=== PATIENT | male | born 1950 | race Caucasian/White ===

== ENCOUNTER 2021-05-21 16:33 | Emergency (ER) | payer OTHER ==
--- OUTSIDE RECORDS SUMMARY | 2021-05-21 16:37 | XMS REPORT | Continuity of Care Document ---
:1950 Author Organization Formerly [facility] t Address [address] [place] [address] Care Team Providers Name Role Phone Aquino_B Attending Clinician Unavailable Jaguar Attending Clinician Unavailable Aquino_B Admitting Clinician Unavailable Jaguar Admitting Clinician Unavailable Payers Payer Name Policy Type Policy Number Effective Date Expiration Date S chuck MEDICARE [place]: [id number] 2015 Simple Emotion 00:00:00 [employer] (MEDICARE [id number] SUPPLEMENT) [facility] [id number] 2019 2020 (MEDICARE 00:00:00 00:00:00 SUPPLEMENT) Problems Condition Condition Condition Status Onset Resolution Last Treating Co mments Source Name Details Category Date Date Treatment Clinician Date Cyst of Cyst of Problem Active [facility] kidney Kidney 1-13 Family 00:00: Practic 00 e Hypothyroi Hypothyroi Problem Active [facility] dism dism 5-01 Family 00:00: Practic 00 e Body mass Body Mass Problem Active Luke meeke index 40+ Index 40+ 5-01 Fami ly - severely - Severely 00:00: Pr actic obese Obese 00 e Morbid Morbid Problem Active [facility] Obesity 4-19 Family 00:00: Practic 00 e Essential Essential Problem Active 2015-06 Luke meeke hypertensi Hypertensi 2-01 Fa didi on on 00:00: Practic 00 e Allergies, Adverse Reactions, Alerts Allergy Allergy Status Severity Reaction(s) Onset Inactive Treating Comm ents Source Name Type Date Date Clinician hydrocod DA Active [facility] 3-22 [place] [facility] acetamin DA Active [facility] 09-15 [facility]: [facility] hydrocod DA Active [facility] 09-15 [place] 00:[facility]: [facility] acetamin DA Active [facility] 09-15 [place] 00:[facility]: [facility] Social History Smoking Status Start Date Stop Date Source Never Smoker [facility] Medications Ordered Filled Start Stop Current Ordering Indication Dosage Frequency Signature Comments Components Source Medication Medication Date Date Medication? Clinician (SIG) Name Name ceftriaxone ceftriaxone No ceftriaxon [facility] 1 gram 1 gram 03-23 e 1 gram Family solution solution 14:25: solution P ractic for for 53 for e injectionTa injectionTa injectionT ke 1 g by ke 1 g by adriana 1 g by injection injection injection route for 1 route for 1 route for day. day. 1 day. amlodipine amlodipine No amlodipine [facility] 10 mg 10 mg 10 mg Family tablet TAKE tablet TAKE tablet Practic 1 TABLET BY 1 TABLET BY TAKE 1 e MOUTH EVERY MOUTH EVERY TABLET BY DAY-- DAY-- MOUTH EVERY DAY-- atenolol atenolol No atenolol Luke sameer 100 100 100 Family mg-chlortha mg-chlortha mg-chlorth Practic lidone 25 lidone 25 alidone 25 e mg tablet mg tablet mg tablet TAKE 1 TAKE 1 TAKE 1 TABLET BY TABLET BY TABLET BY MOUTH EVERY MOUTH EVERY MOUTH DAY- DAY- EVERY DAY- ceftriaxone ceftriaxone No 1g ceftriaxon [facility] 1 gram 1 gram e 1 gram Family solution solution solution Pra ctic for for for e injection injection injection Take 1 g by Take 1 g by Take 1 g injection injection by route for 1 route for 1 injection day. given day. given route for in the in the 1 day. clinic clinic given in the clinic ibuprofen ibuprofen No 1 TID ibuprofen [facility] 600 mg 600 mg 600 mg Family tablet Take tablet Take tablet Practic 1 tablet 3 1 tablet 3 Take 1 e times a day times a day tablet 3 by oral by oral times a route as route as day by needed for needed for oral route 10 days. 10 days. as needed for 10 days. sulfamethox sulfamethox No sulfametho [facility] azole 800 azole 800 xazole 800 Family mg-trimetho mg-trimetho mg-trimeth Practic prim 160 mg prim 160 mg oprim 160 e tablet TAKE tablet TAKE mg tablet 1 TABLET BY 1 TABLET BY TAKE 1 MOUTH EVERY MOUTH EVERY TABLET BY 12 HOURS 12 HOURS MOUTH FOR 7 DAYS FOR 7 DAYS EVERY 12 HOURS FOR 7 DAYS tramadol 50 tramadol 50 No 1 Q6H tramadol [facility] mg tablet mg tablet 50 mg Fami ly Take 1 Take 1 tablet Practic tablet tablet Take 1 e every 6 every 6 tablet hours by hours by every 6 oral route oral route hours by as needed as needed oral route for 7 days. for 7 days. as needed for 7 days. Vital Signs Vital Name Observation Time Observation Value Comments Source BP Diastolic 2021-03-23 00:00:00 74 mm[Hg] [facility] Height 2021-03-23 00:00:00 69 [in_i] [facility] Practice BMI (Body Mass 2021-03-23 00:00:00 45.8 kg/m2 [facility] e Family Index) Practice BP Systolic 2021-03-23 00:00:00 142 mm[Hg] [facility] Body Weight 2021-03-23 00:00:00 310 [lb_av] [facility] BP Diastolic 2021-03-18 00:00:00 77 mm[Hg] [facility] Height 2021-03-18 00:00:00 69 [in_i] [facility] BMI (Body Mass 2021-03-18 00:00:00 46.1 kg/m2 [facility] e Family Index) Practice BP Systolic 2021-03-18 00:00:00 152 mm[Hg] [facility] Body Weight 2021-03-18 00:00:00 312 [lb_av] [facility] BP Diastolic 2020-07-09 00:00:00 74 mm[Hg] [facility] Height 2020-07-09 00:00:00 69 [in_i] [facility] BMI (Body Mass 2020-07-09 00:00:00 45.5 kg/m2 [facility] e Family Index) Practice BP Systolic 2020-07-09 00:00:00 156 mm[Hg] [facility] Body Weight 2020-07-09 00:00:00 308.2 [lb_av] [facility] BP Diastolic 2020-05-01 00:00:00 83 mm[Hg] [facility] Height 2020-05-01 00:00:00 69 [in_i] [facility] BMI (Body Mass 2020-05-01 00:00:00 44.4 kg/m2 [facility] Family Index) Practice BP Systolic 2020-05-01 00:00:00 140 mm[Hg] [facility] Body Weight 2020-05-01 00:00:00 300.8 [lb_av] [facility] BP Diastolic 2019-06-18 00:00:00 96 mm[Hg] [facility] Height 2019-06-18 00:00:00 69 [in_i] [facility] BMI (Body Mass 2019-06-18 00:00:00 44.8 kg/m2 [place] Index) Practice BP Systolic 2019-06-18 00:00:00 189 mm[Hg] [facility] Body Weight 2019-06-18 00:00:00 303.6 [lb_av] [facility] Procedures Procedure Date / Time Performed Performing Clinician [facility] e X-RAY OF WRIST 3+ VIEW 2021-03-23 00:00:00 [facility] Orthopedic Surgery 2010-06-27 00:00:00 [facility] Practice Total Replacement of [facility] Kamran navarro Right Knee Joint Practice Plan of Care Planned Activity Planned Date Details Comments Source Diagnostic Test 2021-03-23 uric acid, serum [facility] Pending 00:00:00 or plasma [code = Practice uric acid, serum or plasma] Future Appointment 2021-07-13 Carolina Leone [facility] 09:15:00 [address]; , [place] [address] Encounters Start End Encounter Admission Attending Care Care Encounter Source Date/Time Date/Time Type Type Clinicians Facility Department ID 2021-05-17 Outpatient VFP VFP [facility] 11:18:32 [id number] Family Practic e 2021-05-17 Outpatient VFP VFP [facility] 01:59:17 [id number] Family Practic e 2021-05-16 Outpatient VFP VFP [facility] 23:41:35 [id number] Family Practic e 2021-05-16 Outpatient VFP VFP [facility] 22:58:16 [id number] Family Practic e 2021-05-16 Outpatient VFP VFP [facility] 22:41:10 [id number] Family Practic e 2021-05-16 Outpatient VFP [facility]FP [id number] [facility] 22:11:51 [id number] Family Practic e 2021-05-16 Outpatient VFP VFP [id number] [facility] 20:56:19 [id number] Family Practic e 2021-05-16 Outpatient VFP VFP [id number] [facility] 18:27:50 [id number] Family Practic e 2021-05-13 Outpatient VFP VFP [id number] [facility] 14:03:46 [id number] Family Practic e 2021-05-13 Outpatient VFP VFP [id number] [facility] 13:57:10 [id number] Family Practic e 2021-05-13 Outpatient VFP VFP [id number] [facility] 13:56:38 [id number] Family Practic e 2021-05-13 Outpatient VFP VFP [id number] [facility] 13:25:12 [id number] Family Practic e 2021-05-13 Outpatient VFP VFP [id number] [facility] 13:12:08 [id number] Family Practic e 2021-05-13 Outpatient VFP VFP [id number] [facility] 12:09:06 [id number] Family Practic e 2021-05-13 Outpatient VFP VFP [id number] [facility] 10:55:00 [id number] Family Practic e 2021-05-13 Outpatient VFP VFP [id number] [facility] 10:54:37 [id number] Family Practic e 2021-05-13 Outpatient VFP VFP [id number] [facility] 10:40:38 [id number] Family Practic e 2021-05-13 Outpatient VFP VFP [id number] [facility] 10:27:29 [id number] Family Practic e 2021-05-13 Outpatient VFP VFP [id number] [facility] 08:49:02 [id number] Family Practic e 2021-05-11 Outpatient Aquino_B VFP VFP [id number] [facility] 04:14:28 [id number] Family Practic e 2021-05-10 Outpatient Aquino_B VFP VFP [id number] [facility] 20:44:33 [id number] Family Practic e 2021-05-10 Outpatient Aquino_B VFP VFP [id number] [facility] 20:33:51 [id number] Family Practic e 2021-05-08 Outpatient Aquino_B VFP VFP [id number] [facility] 21:25:09 [id number] Family Practic e 2021-05-08 Outpatient Aquino_B VFP VFP [id number] [facility] 19:29:28 [id number] Family Practic e 2021-05-08 Outpatient VFP VFP [id number] [facility] 19:12:38 [id number] Family Practic e 2021-05-08 Outpatient Aquino_B VFP VFP [id number] [facility] 16:46:08 [id number] Family Practic e 2021-05-08 Outpatient Aquino_B VFP VFP [id number] [facility] 16:30:35 [id number] Family Practic e 2021-05-08 Outpatient Aquino_B VFP VFP [id number] [facility] 16:16:20 [id number] Family Practic e 2021-05-08 Outpatient VFP VFP [id number] [facility] 15:56:31 [id number] Family Practic e 2021-05-08 Outpatient VFP VFP [id number] [facility] 15:55:22 [id number] Family Practic e 2021-05-08 Outpatient Aquino_B VFP VFP [id number] [facility] 15:12:25 [id number] Family Practic e 2020-12-03 Inpatient EZ Beachews, HCATO SURG [id number] [facility] 12:00:00 [place] [id number] [place] [facility] 2021-03-23 2021-03-23 Carolina L VFP [place] - [id number] [facility] 00:00:00 00:00:00 [facility] 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, [place] [address] , Ph. 2021-03-18 2021-03-18 Carolina L VFP [place] - [id number] [facility] 00:00:00 00:00: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, [place] [address] , Ph. 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, [place] [address] , Ph. 2020-05-01 2020-05-01 Bravo [facility] [place] - [id number] [facility] 00:00:00 00:00:00 Aidan Dykes, Medical - Pract jenny MD: [address], [place] [address] , Ph. 2019-06-18 2019-06-18 Singh [facility] [place] - [id number] [facility] 00:00:00 00:00:00 Dusty [facility] melanie White Medical - Prac tic MD: [address], [place] [address] , Ph. Results Test Description Test Time Test Comments Results Result Comments Source CBC W Auto Differential panel - Blood 2021-03-18 17:31:00 Test Item Value Reference Range Interpretation Comme nts WBC (test code = WBC) 9.06 x10*3/?L 4.00-11.00 RBC (test code = RBC) 5.19 10*12/L 4.63-6.08 hemoglobin (test code = hemoglobin) 14.40 g/dL 13.70-17.50 hematocrit (test code = hematocrit) 43.7 % 40.1-51.0 MCV (test code = MCV) 84.2 fL 80.0-100.0 MCH (test code = MCH) 27.7 pg 25.7-32.2 MCHC (test code = MCHC) 33.0 g/dL 32.3-36.5 RDW-SD (test code = RDW-SD) 41.5 fL 35.1-43.9 platelet count (test code = platelet count) 241.0 k/uL 150.0-400. 0 MPV (test code = MPV) 12.0 fL 7.5-11.5 H neut% (test code = neut%) 64.0 % 34.0-67.9 lymph% (test code = lymph%) 25.5 % 21.8-53.1 mon% (test code = mon%) 6.6 % 5.3-12.2 eos% (test code = eos%) 2.8 % 0.8-7.0 baso% (test code = baso%) 0.7 % 0.2-1.2 neut# (test code = neut#) 5.8 x10*3/?L 1.8-5.4 H lymph# (test code = lymph#) 2.3 x10*3/?L 1.3-3.6 mon# (test code = mon#) 0.6 x10*3/?L 0.3-0.8 eos# (test code = eos#) 0.25 x10*3/?L 0.04-0.54 baso# (test code = baso#) 0.06 x10*3/?L 0.01-0.08 [facility] Auto Differential panel - [id number] 17:31:00 Test Item Value Reference Range Interpretation Comments WBC (test code = WBC) 9.06 x10*3/?L 4.00-11.00 RBC (test code = RBC) 5.19 10*12/L 4.63-6.08 hemoglobin (test code = 14.40 g/dL 13.70-17.50 hemoglobin) hematocrit (test code = 43.7 % 40.1-51.0 hematocrit) MCV (test code = MCV) 84.2 fL 80.0-100.0 MCH (test code = MCH) 27.7 pg 25.7-32.2 MCHC (test code = MCHC) 33.0 g/dL 32.3-36.5 RDW-SD (test code = RDW-SD) 41.5 fL 35.1-43.9 platelet count (test code = 241.0 k/uL 150.0-400.0 platelet count) MPV (test code = MPV) 12.0 fL 7.5-11.5 H neut% (test code = neut%) 64.0 % 34.0-67.9 lymph% (test code = lymph%) 25.5 % 21.8-53.1 mon% (test code = mon%) 6.6 % 5.3-12.2 eos% (test code = eos%) 2.8 % 0.8-7.0 baso% (test code = baso%) 0.7 % 0.2-1.2 neut# (test code = neut#) 5.8 x10*3/?L 1.8-5.4 H lymph# (test code = lymph#) 2.3 x10*3/?L 1.3-3.6 mon# (test code = mon#) 0.6 x10*3/?L 0.3-0.8 eos# (test code = eos#) 0.25 x10*3/?L 0.04-0.54 baso# (test code = baso#) 0.06 x10*3/?L 0.01-0.08 [facility] PracticeComprehensive metabolic 2000 panel - Serum or Plasma 2021-03-18 17:23:00 Test Item Value Reference Range Interpretation Comments ALT (test code = ALT) 22 U/L 0-55 AST (test code = AST) 21 U/L 5-34 BUN (test code = BUN) 13.6 mg/dL 8.4-25.0 alk phos (test code = alk phos) 99 unit/L 40-150 glucose (test code = glucose) 134 mg/dL 70-99 H albumin (test code = albumin) 4.4 g/dL 3.4-5.1 creatinine (test code = 0.89 mg/dL 0.72-1.25 creatinine) eGFR non- (test >60 code = eGFR non-) total bilirubin (test code = 0.8 mg/dL 0.2-1.2 total bilirubin) eGFR - (test >60 code = eGFR - ) sodium (test code = sodium) 139 mEq/L 135-145 potassium (test code = potassium) 3.9 mEq/L 3.5-5.3 chloride (test code = chloride) 101 mmol/L 98-110 total protein (test code = total 7.9 g/dL 6.1-8.2 protein) calcium (test code = calcium) 10.3 mg/dL 8.8-10.2 H CO2 (test code = CO2) 28.2 mmol/L 20.0-32.0 anion gap (test code = anion gap) 10 calc [facility] [id number] D3+25-Hydroxyvitamin D2 [Mass/volume] in Serum or [id number] 17:23:00 Test Item Value Reference Range Interpretation Comments vitamin D 25OH (test code = 71.5 NG/mL 30.0-96.0 vitamin D 25OH) [facility] - [facility] or Plasma 2021-03-18 17:23:00 Test Item Value Reference Range Interpretation Comments ALT (test code = ALT) 22 U/L 0-55 AST (test code = AST) 21 U/L 5-34 BUN (test code = BUN) 13.6 mg/dL 8.4-25.0 alk phos (test code = alk phos) 99 unit/L 40-150 glucose (test code = glucose) 134 mg/dL 70-99 H albumin (test code = albumin) 4.4 g/dL 3.4-5.1 creatinine (test code = 0.89 mg/dL 0.72-1.25 creatinine) eGFR non- (test >60 code = eGFR non-) total bilirubin (test code = 0.8 mg/dL 0.2-1.2 total bilirubin) eGFR - (test >60 code = eGFR - ) sodium (test code = sodium) 139 mEq/L 135-145 potassium (test code = potassium) 3.9 mEq/L 3.5-5.3 chloride (test code = chloride) 101 mmol/L 98-110 total protein (test code = total 7.9 g/dL 6.1-8.2 protein) calcium (test code = calcium) 10.3 mg/dL 8.8-10.2 H CO2 (test code = CO2) 28.2 mmol/L 20.0-32.0 anion gap (test code = anion gap) 10 [facility]25-Hydroxyvitamin D3+25-Hydroxyvitamin D2 [Mass/volume] in Serum or [id number] 17:23:00 Test Item Value Reference Range Interpretation Comments vitamin D 25OH (test code = 71.5 NG/mL 30.0-96.0 vitamin D 25OH) [facility]
[2021-05-21] MEDS ORDERED: CASIRIVIMAB/IMDEVIMAB 10 ML VIAL ONE (18:12)
[2021-05-21] MEDS ORDERED: ACETAMINOPHEN 500 MG TAB ONE (18:12)
[2021-05-21] MEDS ORDERED: NA CHLORIDE 0.9% 250 ML ONE (18:14)
[2021-05-21] MEDS ORDERED: NA CHLORIDE 0.9% 50 ML ONE (19:24)
--- NOTE | 2021-05-21 20:09 | ER ---
Nurse's Notes [facility] Name: Camilo Hinkle Age: 70 yrs Sex: Male : 1950 Arrival Date: 05/21/2021 Time: 16:36 Bed 18 Private MD: Diagnosis: Coronavirus infection, unspecified Presentation: 05/21 16:51 Chief complaint: Patient states: cough x 3 days and states sore throat. States took vg1 home covid test and results were positive. Pt wants to take monoclonal antibodies. Coronavirus screen: Vaccine status: Patient reports being unvaccinated. Client denies travel out of the [place] in the last 14 days. Ebola Screen: Patient negative for fever greater than or equal to 101.5 degrees Fahrenheit, and additional compatible Ebola Virus Disease symptoms. Initial Sepsis Screen: Does the patient meet any 2 criteria? RR > 20 per min. Does the patient have a suspected source of infection? No. Patient's initial sepsis screen is negative. Risk Assessment: Do you want to hurt yourself or someone else? Patient reports no desire to harm self or others. Onset of symptoms was May 18, 2021. 16:51 Method Of Arrival: Ambulatory vg1 16:51 Acuity: LANETTE 3 vg1 Triage Assessment: 16:53 General: Appears in no apparent distress. uncomfortable, Behavior is calm, cooperative. vg1 Pain: Denies pain. Respiratory: Airway is patent Respiratory effort is even, unlabored, Respiratory pattern is tachypnea. Historical: - Allergies: 16:53 hydrocdone; vg1 - Home Meds: 16:53 Metoprolol Tartrate Oral [Active]; amlodipine oral [Active]; vg1 - PMHx: 16:53 Hypertensive disorder; vg1 - PSHx: 16:53 Replacement of total knee joint; vg1 - Immunization history:: Client reports having NOT received the Covid vaccine. - Social history:: Smoking status: Patient denies any tobacco usage or history of. Screenin:30 Abuse screen: Denies threats or abuse. Denies injuries from another. sl2 17:30 Nutritional screening: No deficits noted. Tuberculosis screening: No symptoms or risk sl2 factors identified. Fall Risk None identified. Assessment: 17:20 General: Appears in no apparent distress. obese, well groomed, well developed, Behavior sl2 is calm, cooperative, appropriate for age, Reports Frequent cough, covid positive. 17:20 Pain: Denies pain. Neuro: No deficits noted. Level of Consciousness is awake, alert, sl2 obeys commands, Oriented to person, place, time, situation, Appropriate for age Cloth Shearing Supervisor are equal bilaterally Moves all extremities. Full function Gait is steady, Speech is normal, Facial symmetry appears normal. Cardiovascular: No deficits noted. Capillary refill < 3 seconds Rhythm is regular. Respiratory: Reports cough that is non-productive, persistent Airway is patent Trachea midline Respiratory effort is even, unlabored, Respiratory pattern is regular, symmetrical, Breath sounds are clear bilaterally. Breath sounds are diminished the patient has mild shortness of breath. GI: No deficits noted. No signs and/or symptoms were reported involving the gastrointestinal system. : No deficits noted. No signs and/or symptoms were reported regarding the genitourinary system. EENT: No deficits noted. No signs and/or symptoms were reported regarding the EENT system. Derm: No deficits noted. No signs and/or symptoms reported regarding the dermatologic system. Musculoskeletal: No deficits noted. No signs and/or symptoms reported regarding the musculoskeletal system. 19:55 General: Appears in no apparent distress. comfortable, Behavior is calm, cooperative. cc4 Pain: Denies pain. Neuro: No deficits noted. Level of Consciousness is awake, alert, obeys commands, Oriented to person, place, time, situation. Cardiovascular: No deficits noted. Capillary refill < 3 seconds. Respiratory: Reports cough that is non-productive, Airway is patent Respiratory effort is even, unlabored, Respiratory pattern is regular, symmetrical, Breath sounds are clear bilaterally. Breath sounds are diminished bilaterally. in left posterior lower lobe, right posterior middle lobe and right posterior lower lobe. GI: No signs and/or symptoms were reported involving the gastrointestinal system. : No signs and/or symptoms were reported regarding the genitourinary system. EENT: Reports nasal congestion since x 1 week. Derm: No deficits noted. Skin is intact. Musculoskeletal: No deficits noted. Range of motion: intact in all extremities, Regen-cov infusion complete, nohemy. well; instructed on need to monitor x 1 additional hour with v/u; VSS; voices no complaints. 20:55 Reassessment: Patient appears in no apparent distress at this time. No changes from cc4 previously documented assessment. Denies any complaints; no distress noted; VSS. Vital Signs: 16:51 BP 168 / 71; Pulse 70; Resp 22; Temp 100.6(O); Pulse Ox 97% ; Weight 129.73 kg; Height vg1 6 ft. 0 in. (182.88 cm); Pain 0/10; 17:30 BP 141 / 53; Pulse 64; Resp 18; Pulse Ox 96% on R/A; sl2 18:15 BP 148 / 52; Pulse 60; Resp 18; Temp 99.8; Pulse Ox 96% ; sl2 18:45 BP 153 / 62; Pulse 59; Resp 20; Temp 99.1(O); Pulse Ox 95% on R/A; sl2 19:00 BP 142 / 52; Pulse 60; Resp 20; Pulse Ox 96% on R/A; sl2 19:15 BP 135 / 53; Pulse 60; Resp 18; Temp 99.0(O); Pulse Ox 96% on R/A; sl2 19:55 BP 136 / 56; Pulse 65; Resp 18 S; Temp 98.9(O); Pulse Ox 96% on R/A; cc4 20:55 BP 144 / 74; Pulse 61; Resp 18 S; Temp 98.9(O); Pulse Ox 96% on R/A; cc4 16:51 Body Mass Index 38.79 (129.73 kg, 182.88 cm) vg1 ED Course: 16:36 Patient arrived in ED. ds1 16:44 Rae Foote FNP-C is [facility]. kb 16:44 Ngoc Sherwood MD is Attending Physician. kb 16:53 Triage completed. vg1 16:53 Arm band placed on. vg1 17:30 Patient has correct armband on for positive identification. Bed in low position. Call sl2 light in reach. Side rails up X2. 17:30 No provider procedures requiring assistance completed. sl2 17:40 Felicia Easton, RAINA is Primary Nurse. sl2 18:58 Inserted saline lock: 20 gauge in right upper arm, using aseptic technique. sl2 20:55 IV discontinued, intact, bleeding controlled, No redness/swelling at site. Pressure cc4 dressing applied. Administered Medications: 18:14 Drug: Tylenol 1000 mg Route: PO; sl2 05/22 05:10 Follow up: Response: No adverse reaction; Temperature is decreased cc4 05/21 18:45 Drug: REGEN-COV Dose Pack 120 mg/mL-120 mg/mL (EUA) 1 application Route: IV; Rate: sl2 calculated rate; Site: right upper arm; 20:55 Follow up: Response: No adverse reaction; IV Status: Completed infusion; IV Intake: cc4 250ml Intake: 20:55 IV: 250ml; Total: 250ml. cc4 Outcome: 20:09 Discharge ordered by MD. bassett 20:55 Discharged to home ambulatory. cc4 20:55 Condition: improved 20:55 Discharge instructions given to patient, Instructed on discharge instructions, follow up and referral plans. medication usage, Demonstrated understanding of instructions, follow-up care, medications. 21:02 Patient left the ED. cc4 Signatures: Rae Foote, SOUND RECORDIST-C SOUND RECORDIST-CkMellissa Tyson ds1 Leonora Doyle RN RN vg1 Flor Ramirez RN RN cc4 Felicia Easton RN RN sl2
--- NOTE | 2021-05-21 20:09 | EDPHYS ---
Physician Documentation [facility] Name: Camilo Hinkle Age: 70 yrs Sex: Male : 1950 Arrival Date: 05/21/2021 Time: 16:36 Bed 18 Private MD: ED Physician Ngoc Sherwood HPI: 05/21 16:50 This 70 yrs old Male presents to ER via Unassigned with complaints of Covid + Wants kb Infusion. 16:50 The patient or guardian reports cough. Onset: The symptoms/episode began/occurred 3 kb day(s) ago. Severity of symptoms: At their worst the symptoms were mild, in the emergency department the symptoms are unchanged. Modifying factors: The symptoms are alleviated by nothing, the symptoms are aggravated by nothing. Associated signs and symptoms: Pertinent positives: fever, sore throat, Pertinent negatives: chest pain, diarrhea, ear ache, nausea, rhinorrhea, vomiting. The patient has not experienced similar symptoms in the past. The patient has not recently seen a physician. Pt reports cough and sore throat for 3 days. Tested positive for covid yesterday. Came in today for monoclonal antibody infusion. Historical: - Allergies: 16:53 hydrocdone; vg1 - Home Meds: 16:53 Metoprolol Tartrate Oral [Active]; amlodipine oral [Active]; vg1 - PMHx: 16:53 Hypertensive disorder; vg1 - PSHx: 16:53 Replacement of total knee joint; vg1 - Immunization history:: Client reports having NOT received the Covid vaccine. - Social history:: Smoking status: Patient denies any tobacco usage or history of. ROS: 16:51 Cardiovascular: Negative for chest pain, palpitations, and edema. kb 16:51 Constitutional: Positive for fever. 16:51 ENT: Positive for sore throat. 16:51 Respiratory: Positive for cough. 16:51 All other systems are negative. Exam: 16:51 Constitutional: This is a well developed, well nourished patient who is awake, alert, kb and in no acute distress. Head/Face: Normocephalic, atraumatic. ENT: Moist Mucous membranes Respiratory: Respirations even and unlabored. No increased work of breathing, no retractions or nasal flaring. Skin: Warm, dry with normal turgor. Normal color. MS/ Extremity: Pulses equal, no cyanosis. Neurovascular intact. Full, normal range of motion. Neuro: Awake and alert, GCS 15, oriented to person, place, time, and situation. Moves all extremities. Normal gait. Psych: Awake, alert, with orientation to person, place and time. Behavior, mood, and affect are within normal limits. Vital Signs: 16:51 BP 168 / 71; Pulse 70; Resp 22; Temp 100.6(O); Pulse Ox 97% ; Weight 129.73 kg; Height vg1 6 ft. 0 in. (182.88 cm); Pain 0/10; 17:30 BP 141 / 53; Pulse 64; Resp 18; Pulse Ox 96% on R/A; sl2 18:15 BP 148 / 52; Pulse 60; Resp 18; Temp 99.8; Pulse Ox 96% ; sl2 18:45 BP 153 / 62; Pulse 59; Resp 20; Temp 99.1(O); Pulse Ox 95% on R/A; sl2 19:00 BP 142 / 52; Pulse 60; Resp 20; Pulse Ox 96% on R/A; sl2 19:15 BP 135 / 53; Pulse 60; Resp 18; Temp 99.0(O); Pulse Ox 96% on R/A; sl2 19:55 BP 136 / 56; Pulse 65; Resp 18 S; Temp 98.9(O); Pulse Ox 96% on R/A; cc4 20:55 BP 144 / 74; Pulse 61; Resp 18 S; Temp 98.9(O); Pulse Ox 96% on R/A; cc4 16:51 Body Mass Index 38.79 (129.73 kg, 182.88 cm) vg1 MDM: 16:44 Patient medically screened. kb 16:51 Data reviewed: vital signs, nurses notes. Data interpreted: Pulse oximetry: on room air kb is 96 %. Interpretation: normal. 20:08 Counseling: I had a detailed discussion with the patient and/or guardian regarding: the kb historical points, exam findings, and any diagnostic results supporting the discharge/admit diagnosis, the need for outpatient follow up, a family practitioner, to return to the emergency department if symptoms worsen or persist or if there are any questions or concerns that arise at home. Administered Medications: 18:14 Drug: Tylenol 1000 mg Route: PO; sl2 05/22 05:10 Follow up: Response: No adverse reaction; Temperature is decreased cc4 05/21 18:45 Drug: REGEN-COV Dose Pack 120 mg/mL-120 mg/mL (EUA) 1 application Route: IV; Rate: sl2 calculated rate; Site: right upper arm; 20:55 Follow up: Response: No adverse reaction; IV Status: Completed infusion; IV Intake: cc4 250ml Disposition Summary: 05/21/21 20:09 Discharge Ordered Location: Home kb Condition: Stable kb Diagnosis - Coronavirus infection, unspecified kb Followup: kb - With: Emergency Department - When: As needed - Reason: Worsening of condition Followup: kb - With: Private Physician - When: 2 - 3 days - Reason: Recheck today's complaints, Continuance of care, Re-evaluation by your physician Discharge Instructions: - Discharge Summary Sheet kb - COVID-19 kb Forms: - Medication Reconciliation Form kb - Thank You Letter kb - Antibiotic Education kb - Prescription Opioid Use kb Prescriptions: - Tessalon Perles 100 mg Oral Capsule - take 1 capsule by ORAL route every 8 hours As needed; 15 capsule; Refills: 0, kb Product Selection Permitted Signatures: Rae Foote, VIVIANE PEREZ-Leonora Llamas RN RN vg1 Felicia Easton RN RN sl2 Flor Ramirez RN cc4
[2021-05-21 21:13] VITALS: O2SAT 96
[2021-05-21 21:16] VITALS: BP 135/53; TEMP 99
== END 2021-05-21 21:02 | disposition home or self-care (01) ==
LOC: ER 16:33
DX: U07.1 COVID-19 (principal); I10 Essential (primary) hypertension; Z88.5 Allergy status to narcotic agent
CPT/HCPCS: 96365; 99283; 96366; J7050